=== PATIENT | female | born 2005 | race Hispanic/Latino ===

== ENCOUNTER 2023-03-06 23:10 | Inpatient (IN) | payer OTHER ==
[~2023-03-06] VITALS: Ht 162.6 cm; Wt 59.1 kg
[2023-03-06] MEDS ORDERED: MED REC IN PROGRESS XX SCH (23:40)
[2023-03-07 00:42] LABS: AMPHETAMINES LEVEL URINE NEGATIVE (NEGATIVE); BARBITURATES URINE NEGATIVE (NEGATIVE); BENZODIAZEPINES URINE NEGATIVE (NEGATIVE); CANNABINOIDS URINE NEGATIVE (NEGATIVE); COCAINE METABOLITE URINE NEGATIVE (NEGATIVE); METHADONE URINE NEGATIVE (NEGATIVE); OPIATES URINE NEGATIVE (NEGATIVE); PHENCYCLIDINE URINE NEGATIVE (NEGATIVE)
[2023-03-07 00:45] LABS: ETHYL ALCOHOL (ETHANOL) < 0.003 % (0.000-0.010)
[2023-03-07 00:46] LABS: ACETAMINOPHEN LEVEL < 2.0 UG/ML (10.0-20.0)
[2023-03-07 00:47] LABS: ALBUMIN 4.4 G/DL (3.2-5.2); ALKALINE PHOSPHATASE 58 U/L (46-116); ALT/SGPT < 9 U/L (7.0-40); AST/SGOT < 8 U/L (<34); BILIRUBIN,DIRECT 0.2 MG/DL (<0.4); BILIRUBIN,TOTAL 0.6 MG/DL (0.3-1.2); BLOOD UREA NITROGEN 14 MG/DL (9-23); CALCIUM LEVEL 9.4 MG/DL (8.5-10.1); CARBON DIOXIDE LEVEL 23 MMOL/L (20-31); CHLORIDE LEVEL 107 MMOL/L (98-107); CREATININE FOR GFR 0.66 MG/DL (0.55-1.30); GLUCOSE, FASTING 97 MG/DL (60-100); SALICYLATE LEVEL < 3.0 MG/DL (<30); SODIUM LEVEL 138 MMOL/L (136-145); TOTAL PROTEIN 6.9 G/DL (5.7-8.2)
[2023-03-07 00:48] LABS: THYROID STIMULATING HORMONE 1.183 uIU/ML (0.48-4.17)
[2023-03-07 00:51] LABS: HEMATOCRIT 38.5 % (36.0-47.0); HEMOGLOBIN 12.7 g/dl (12.0-15.5); MEAN CORPUSCULAR HEMOGLOBIN 29.9 pg (27.0-33.0); MEAN CORPUSCULAR VOLUME 90.6 fl (80.0-96.0); PLATELET COUNT, AUTOMATED 196 10^3/uL (150-450); RED BLOOD COUNT 4.25 10^6/uL (4.00-5.40); WHITE BLOOD COUNT 12.1 10^3/uL (4.0-10.0)
[2023-03-07 01:13] LABS: HCG, SERUM QUALITATIVE NEGATIVE (NEGATIVE)
[2023-03-07] MEDS ORDERED: HOME MED LIST COMPLETE! XX SCH (01:40)
[2023-03-07] MEDS: NICOTINE 14 MG/24 HR TRANSDERMAL TD SCH (09:00)
[2023-03-07] MEDS ORDERED: ACETAMINOPHEN TAB 650MG DOSE (2X325MG) PO PRN (12:45)
[2023-03-07] MEDS ORDERED: MOM 30ML SUSPENSION UDC PO PRN (12:45)
[2023-03-07] MEDS ORDERED: IBUPROFEN 400MG TAB PO PRN (12:45)
[2023-03-07] MEDS ORDERED: MAALOX 30 ML SUSP *UDC PO PRN (12:45)
[2023-03-07] MEDS ORDERED: traZODone 50 MG TAB PO PRN (12:45)
[2023-03-07] MEDS ORDERED: diphenhydrAMINE 25MG CAP PO PRN (12:45)
[2023-03-07 17:02] VITALS: BP 125/63; TEMP 98.7; O2SAT 99
[2023-03-08] MEDS: NICOTINE 14 MG/24 HR TRANSDERMAL TD SCH (09:00)
[2023-03-08 18:19] VITALS: BP 131/83; TEMP 97
[2023-03-09 06:49] VITALS: BP 98/57; TEMP 98.1; O2SAT 100
[2023-03-09] MEDS: NICOTINE 14 MG/24 HR TRANSDERMAL TD SCH (09:00)
[2023-03-09] MEDS ORDERED: HYDR-643 PO (09:01)
== END 2023-03-09 11:36 | disposition home or self-care (01) | DRG 885 ==
LOC: M ED 23:10 → EDBD 23:10 → M ED INP 03-07 12:44 → M PSY 03-07 17:07
PROVIDERS: ADMIT Student in an Organized Health Care Education/Training Program; ATTEND Student in an Organized Health Care Education/Training Program
DX: F39 Unspecified mood [affective] disorder (principal); R45.851 Suicidal ideations; F17.290 Nicotine dependence, other tobacco product, uncomplicated

== ENCOUNTER 2023-04-03 07:02 | Emergency (ER) | payer OTHER ==
[~2023-04-03] VITALS: Ht 162.6 cm; Wt 62.3 kg
[~2023-04-03 07:02] MED LIST: HYDR-643 PO
[2023-04-03 11:40] VITALS: TEMP 97
[2023-04-03 11:47] LABS: BASO # 0.1 10^3/uL (0.0-0.2); BASO % 0.8 % (0.0-1.0); EOS # 0.1 10^3/uL (0.0-0.5); EOS % 1.5 % (0.0-3.0); HEMATOCRIT 37.6 % (36.0-47.0); HEMOGLOBIN 12.2 g/dl (12.0-15.5); LYMPH # 2.3 10^3/uL (1.5-5.0); LYMPH % 36.7 % (24.0-44.0); MEAN CORPUSCULAR HEMOGLOBIN 29.8 pg (27.0-33.0); MEAN CORPUSCULAR HGB CONC 32.4 g/dl (32.0-36.5); MEAN CORPUSCULAR VOLUME 91.7 fl (80.0-96.0); MONO # 0.5 10^3/uL (0.0-0.8); MONO % 7.6 % (2.0-8.0); NEUTROPHILS # 3.3 10^3/uL (1.5-8.5); NEUTROPHILS % 53.2 % (36.0-66.0); PLATELET COUNT, AUTOMATED 187 10^3/uL (150-450); WHITE BLOOD COUNT 6.2 10^3/uL (4.0-10.0)
[2023-04-03 12:00] LABS: ERYTHROCYTE SEDIMENTATION RATE 12 mm/hr (0-20)
[2023-04-03 12:22] LABS: LIPASE 36 U/L (12-53)
[2023-04-03 12:24] LABS: ALBUMIN 4.2 G/DL (3.2-5.2); ALKALINE PHOSPHATASE 47 U/L (46-116); ALT/SGPT 12 U/L (7.0-40); AST/SGOT 11 U/L (<34); BILIRUBIN,DIRECT 0.4 MG/DL (<0.4); BILIRUBIN,TOTAL 1.1 MG/DL (0.3-1.2); BLOOD UREA NITROGEN 6 MG/DL (9-23); CALCIUM LEVEL 9.2 MG/DL (8.5-10.1); CARBON DIOXIDE LEVEL 28 MMOL/L (20-31); CHLORIDE LEVEL 107 MMOL/L (98-107); CPK CREATINE PHOSPHOKINASE 408 U/L (34-145); CREATININE FOR GFR 0.63 MG/DL (0.55-1.30); GLUCOSE, FASTING 85 MG/DL (60-100); POTASSIUM SERUM 4.3 MMOL/L (3.5-5.1); SODIUM LEVEL 140 MMOL/L (136-145); TOTAL PROTEIN 6.8 G/DL (5.7-8.2)
[2023-04-03 12:26] LABS: CK-MB VALUE MASS < 1.0 NG/ML (<3.6); MB/CK RELATIVE INDEX 0.24 (< OR =4)
[2023-04-03 12:27] LABS: C REACTIVE PROTEIN QUANTITATIV < 0.40 MG/DL (<1.0)
[2023-04-03] MEDS ORDERED: NAPR-837 PO (13:04)
[2023-04-03] MEDS ORDERED: VENTAER INH (13:04)
[2023-04-03] MEDS ORDERED: KETOROLAC 30 MG/ML 1ML VIAL IV ONE (13:05)
[2023-04-03 13:15] VITALS: BP 114/65
[2023-04-03 13:17] VITALS: O2SAT 100
== END 2023-04-03 13:25 | disposition home or self-care (01) ==
LOC: M ED 07:02
DX: R07.89 Other chest pain (principal); M94.0 Chondrocostal junction syndrome [Tietze]; R06.00 Dyspnea, unspecified; F41.9 Anxiety disorder, unspecified; F32.A Depression, unspecified; Z79.899 Other long term (current) drug therapy
CPT/HCPCS: 80048; 80076; 82550; 82553; 83690; 84484; 84702; 85025; 85379; 85652; 86140; 93005; 93041; 96374; 99285; J1885

== ENCOUNTER 2023-05-26 21:06 | Inpatient (IN) | payer OTHER ==
[~2023-05-26] VITALS: Ht 162.6 cm; Wt 57.2 kg
[~2023-05-26 21:06] MED LIST changes: +NAPR-837 PO; +VENTAER INH
[2023-05-26 21:50] LABS: HEMATOCRIT 39.7 % (36.0-47.0); HEMOGLOBIN 13.3 g/dl (12.0-15.5); MEAN CORPUSCULAR HEMOGLOBIN 30.6 pg (27.0-33.0); MEAN CORPUSCULAR HGB CONC 33.5 g/dl (32.0-36.5); MEAN CORPUSCULAR VOLUME 91.3 fl (80.0-96.0); PLATELET COUNT, AUTOMATED 257 10^3/uL (150-450); RED BLOOD COUNT 4.35 10^6/uL (4.00-5.40); WHITE BLOOD COUNT 8.7 10^3/uL (4.0-10.0)
[2023-05-26 22:21] LABS: AMPHETAMINES LEVEL URINE NEGATIVE (NEGATIVE)
[2023-05-26 22:22] LABS: BARBITURATES URINE NEGATIVE (NEGATIVE); BENZODIAZEPINES URINE NEGATIVE (NEGATIVE); CANNABINOIDS URINE NEGATIVE (NEGATIVE); COCAINE METABOLITE URINE NEGATIVE (NEGATIVE); METHADONE URINE NEGATIVE (NEGATIVE); OPIATES URINE NEGATIVE (NEGATIVE); PHENCYCLIDINE URINE NEGATIVE (NEGATIVE)
[2023-05-26 22:28] LABS: ETHYL ALCOHOL (ETHANOL) < 0.003 % (0.000-0.010)
[2023-05-26 22:29] LABS: SALICYLATE LEVEL < 3.0 MG/DL (<30)
[2023-05-26 22:30] LABS: ACETAMINOPHEN LEVEL < 2.0 UG/ML (10.0-20.0); ALBUMIN 4.3 G/DL (3.2-5.2); ALKALINE PHOSPHATASE 43 U/L (46-116); ALT/SGPT 26 U/L (7.0-40); AST/SGOT 17 U/L (<34); BILIRUBIN,DIRECT 0.3 MG/DL (<0.4); BILIRUBIN,TOTAL 0.7 MG/DL (0.3-1.2); BLOOD UREA NITROGEN 10 MG/DL (9-23); CALCIUM LEVEL 9.7 MG/DL (8.5-10.1); CARBON DIOXIDE LEVEL 26 MMOL/L (20-31); CHLORIDE LEVEL 105 MMOL/L (98-107); CREATININE FOR GFR 0.73 MG/DL (0.55-1.30); GLUCOSE, FASTING 87 MG/DL (60-100); POTASSIUM SERUM 3.9 MMOL/L (3.5-5.1); SODIUM LEVEL 139 MMOL/L (136-145); TOTAL PROTEIN 7.3 G/DL (5.7-8.2)
[2023-05-26 23:47] LABS: HCG, SERUM QUALITATIVE NEGATIVE (NEGATIVE)
[2023-05-27] MEDS ORDERED: MED REC IN PROGRESS XX SCH (08:25)
[2023-05-27] MEDS ORDERED: JOLETAB PO (08:39)
[2023-05-27] MEDS ORDERED: VENTAER INH (08:39)
[2023-05-27] MEDS ORDERED: HYDR-3363 PO (08:39)
[2023-05-27] MEDS ORDERED: FLUO20CA22 PO (08:39)
[2023-05-27] MEDS ORDERED: HOME MED LIST COMPLETE! XX SCH (08:50)
[2023-05-28] MEDS ORDERED: ALBUTEROL 90 MCG/ACT 8GM HFA INHALER INH PRN (13:05)
[2023-05-28] MEDS: FLUoxetine 20MG CAP PO SCH (14:51)
[2023-05-28 15:54] VITALS: BP 139/90; TEMP 97.8
[2023-05-29 06:10] VITALS: BP 118/68; TEMP 98.8; O2SAT 99
[2023-05-29] MEDS ORDERED: FLUoxetine 20MG CAP PO ONE (09:00)
[2023-05-29] MEDS: FLUoxetine 20MG CAP PO SCH (09:41)
== END 2023-05-29 12:47 | disposition home or self-care (01) | DRG 881 ==
LOC: M ED 21:06 → M ED INP 05-28 13:03 → M PSY 05-28 15:58
PROVIDERS: ADMIT Student in an Organized Health Care Education/Training Program; ATTEND Student in an Organized Health Care Education/Training Program
DX: F32.A Depression, unspecified (principal); R45.851 Suicidal ideations; F17.290 Nicotine dependence, other tobacco product, uncomplicated; J45.909 Unspecified asthma, uncomplicated; Z79.899 Other long term (current) drug therapy; Z20.822 Contact with and (suspected) exposure to COVID-19